=== PATIENT | male | born 1985 | race Caucasian/White ===

== ENCOUNTER 2018-06-18 23:27 | Emergency (ER) | payer BC, OTHER ==
[~2018-06-18] VITALS: Ht 188 cm; Wt 107.9 kg
[~2018-06-18 23:27] MED LIST: PRED20TA PO
[2018-06-18] MEDS ORDERED: normal saline 1000ML IV soln IVB ONE (23:50)
[2018-06-18] MEDS ORDERED: aspirin 81mg tab.chew PO ONE (23:50)
[2018-06-18] MEDS ORDERED: nitroGLYCERIN 0.4mg SUBLingual tab SL PRN (23:50)
[2018-06-19] MEDS ORDERED: ondansetron/PF 4mg/2ml inj IV ONE (00:10)
[2018-06-19] MEDS ORDERED: ondansetron 4mg rapidly disintigrating tab PO ONE (00:15)
[2018-06-19 00:17] LABS: BASOPHILS # (AUTO) 0.1 X10'3 (0-0.2); BASOPHILS % (AUTO) 0.9 % (0-1); EOSINOPHILS # (AUTO) 0.2 X10'3 (0-0.9); EOSINOPHILS % (AUTO) 2.2 % (0-6); HEMATOCRIT 46.8 % (42.0-52.0); HEMOGLOBIN 15.9 g/dl (14.0-17.9); LYMPHOCYTES # (AUTO) 3.8 X10'3 (1.1-4.8); MEAN CORPUSCULAR HEMOGLOBIN 28.6 PG (27.0-31.0); MEAN CORPUSCULAR HGB CONC 33.9 % (33.0-36.5); MEAN CORPUSCULAR VOLUME 84.4 FL (78-98); MEAN PLATELET VOLUME 7.7 FL (7.4-10.4); MONOCYTES # (AUTO) 0.5 X10'3 (0-0.9); MONOCYTES % (AUTO) 5.3 % (2-12); NEUTROPHILS # (AUTO) 5.1 X10'3 (1.8-7.7); NEUTROPHILS % (AUTO) 52.6 % (42-75); PLATELET COUNT 247 X10'3 (140-440); RED BLOOD COUNT 5.55 X10'6 (4.70-6.10); RED CELL DISTRIBUTION WIDTH 13.2 % (11.5-14.5); WHITE BLOOD COUNT 9.6 X10'3 (4.5-11.0)
[2018-06-19 00:33] LABS: ALANINE AMINOTRANSFERASE 64 U/L (12-78); ALBUMIN/GLOBULIN RATIO 1.1 (1.1-1.5); ALKALINE PHOSPHATASE 77 IU/L (46-116); ANION GAP 9 (8-16); ASPARTATE AMINO TRANSFERASE 38 U/L (10-37); BILIRUBIN,TOTAL 0.4 MG/DL (0.1-1.0); BLOOD UREA NITROGEN 17 MG/DL (7-18); BUN/CREATININE RATIO 16.3 (5.4-32.0); CALCIUM 9.4 MG/DL (8.5-10.1); CHLORIDE 104 MMOL/L (99-107); CREATININE 1.04 MG/DL (0.60-1.10); GLUCOSE 119 MG/DL (70-104); SODIUM 141 MMOL/L (135-145); TOTAL CARBON DIOXIDE 27.6 MMOL/L (24-32); TOTAL PROTEIN 7.8 G/DL (6.4-8.2); eGFR 83 ML/MIN
[2018-06-19 00:35] LABS: POTASSIUM 3.7 MMOL/L (3.5-5.1)
[2018-06-19 01:26] LABS: D-DIMER < 0.19 MG/L FEU (0-0.50)
[2018-06-19] MEDS ORDERED: mag hydrox/Alum hydrox/simeth 30ml oral suspension PO ONE (01:35)
[2018-06-19] MEDS ORDERED: famotidine/PF 10 mg/ml inj IV ONE (01:35)
[2018-06-19] MEDS ORDERED: ketorolac trometh. 30mg/ml inj. IV ONE (01:35)
[2018-06-19 02:13] VITALS: BP 150/94
== END 2018-06-19 02:16 | disposition home or self-care (01) ==
LOC: ER 23:28
DX: R07.89 Other chest pain (principal); R05 Cough; Z79.899 Other long term (current) drug therapy
CPT/HCPCS: 36415; 71045; 80053; 82948; 84484; 85025; 85379; 93005; 96374; 96375; 99285; J1885; J2405; J3490; J7030